=== PATIENT | female | born 1990 | race Caucasian/White ===

== ENCOUNTER 2021-06-02 01:46 | Inpatient (IN) ==
[2021-06-02] MEDS ORDERED: Ondansetron 4 MG/2 ML VIAL IVP PRN (02:02)
[2021-06-02] MEDS ORDERED: Naloxone 0.4 MG/ML INJ IVP PRN (02:02)
[2021-06-02] MEDS ORDERED: Famotidine 20 MG/2 ML VIAL IVP PRN (02:02)
[2021-06-02] MEDS ORDERED: Metoclopramide 10 MG/2 ML VIAL IVP PRN (02:02)
[2021-06-02] MEDS ORDERED: *HR* Nalbuphine 10 MG/ML AMPUL IV PRN (02:02)
[2021-06-02] MEDS ORDERED: Penicillin G Potassium 5,000,000 UNIT in 0.9 % Sodium Chloride Mini Bag 100 ML IVPB ONE (02:02)
[2021-06-02] MEDS ORDERED: Azithromycin 500 MG in 0.9 % Sodium Chloride 250 ML IVPB PRN (02:02)
[2021-06-02] MEDS ORDERED: Ringers Solution, Lactated 1,000 ML IVC SCH (02:15)
[2021-06-02 03:14] LABS: Basophils % 0.5 %; Eosinophils # 0.1 K/mcL (0.0-0.6); Eosinophils % 1.3 %; Hematocrit 36.4 % (35.3-44.9); Hemoglobin 11.9 g/dL (11.5-15.4); Immature Granulocytes % 0.2 % (0-4); Lymphocytes # 2.2 K/mcL (0.6-4.6); Lymphocytes % 25.5 %; Mean Corpuscular HGB Conc 32.7 g/dL (31.6-35.5); Mean Corpuscular Hemoglobin 28.5 pg (28.0-33.3); Mean Corpuscular Volume 87.1 fL (83.0-100.0); Mean Platelet Volume 11.5 fL (9.4-12.4); Monocytes # 0.5 K/mcL (0.0-1.3); Monocytes % 5.7 %; Neutrophils # 5.9 K/mcL (1.6-8.9); Platelet Count 174 K/mcL (140-400); Red Blood Count 4.18 M/mcL (3.82-4.97); Red Cell Distribution Width 13.4 % (11.5-14.5); Segmented Neutrophils % 66.8 %; White Blood Count 8.8 K/mcL (4.3-11.1)
[2021-06-02 03:19] LABS: Influenza A PCR Negative (Negative); Influenza B PCR Negative (Negative); Resp. Syncytial Virus PCR Negative (Negative); SARS-CoV-2 by PCR (In House) Negative (Negative)
[2021-06-02 03:34] LABS: Amphetamine Screen,Urine Negative ng/mL (Cutoff=1000); Barbiturate Screen,Urine Negative ng/mL (Cutoff=200); Benzodiazepines Screen,Urine Negative ng/mL (Cutoff=200); Cannabinoid Screen,Urine Negative ng/mL (Cutoff = 50); Cocaine Screen,Urine Negative ng/mL (Cutoff= 300); Opiate Screen,Urine Negative ng/mL (Cutoff=300); Phencyclidine Screen,Urine Negative ng/mL (Cutoff=25)
[2021-06-02] MEDS: Penicillin G Potassium 2,500,000 UNIT/105 ML MLS IVPB SCH ×2 (07:00→10:58)
[2021-06-02] MEDS ORDERED: Oxytocin 20 units/ LR 1000 mL 20 UNIT/1,000 ML BAG IVC SCH ×2 (07:15→15:30)
[2021-06-02] MEDS ORDERED: Lidocaine 1% 20 ML MDV ONE (11:17)
[2021-06-02] MEDS ORDERED: *HR* FentaNYL (PF) 100 MCG/2 ML VIAL IVP STA (12:46)
[2021-06-02] MEDS ORDERED: Oxytocin 20 units/ LR 1000 mL 20 UNIT/1,000 ML BAG IVC ONE (15:30)
[2021-06-02] MEDS ORDERED: *HR* OxyCODONE Immed Rel 5 MG TABLET PO PRN (15:30)
[2021-06-02] MEDS ORDERED: Benzocaine/Menthol 56 GM AEROSOL SPRAY TP PRN (15:30)
[2021-06-02] MEDS ORDERED: Ondansetron ODT 4 MG TAB.RAPDIS SL PRN (15:30)
[2021-06-02] MEDS ORDERED: Lanolin 7 G OINT...G. TP PRN (15:30)
[2021-06-02] MEDS: Ibuprofen 600 MG TABLET PO SCH (18:31)
[2021-06-02] MEDS: Acetaminophen 325 MG TABLET PO SCH (18:31)
[2021-06-03] MEDS: Acetaminophen 325 MG TABLET PO SCH ×2 (01:40→08:15)
[2021-06-03] MEDS: Ibuprofen 600 MG TABLET PO SCH ×2 (01:40→08:15)
[2021-06-03 07:51] VITALS: BP 121/84; PULSE 81; TEMP 97.5; O2SAT 100
[2021-06-03] MEDS ORDERED: Prenatal Vit/FA 1 EACH TABLET PO SCH (09:00)
== END 2021-06-03 13:35 | disposition home or self-care (01) | DRG 806 ==
LOC: 1NENULAB 01:46 → 1NENUOBS 15:24
PROVIDERS: ADMIT Registered Nurse; ATTEND Registered Nurse